=== PATIENT | male | born 1975 | race Caucasian/White ===

== ENCOUNTER 2016-05-07 17:32 | Emergency (ER) | payer MEDICAID ==
[~2016-05-07] VITALS: Ht 172.7 cm; Wt 90.7 kg
[~2016-05-07 17:32] MED LIST: FLUC150T PO; HYDR-3580 PO; NYST100010 PO; PRED50TA PO
[2016-05-07 17:39] VITALS: BP 151/105; PULSE 86; RESP 16; TEMP 97.9; O2SAT 95
[2016-05-07] MEDS ORDERED: PRED-503 PO (18:34)
[2016-05-07] MEDS ORDERED: CYCL1TAB29 PO (18:34)
--- NOTE | 2016-05-07 18:35 | PD ---
HPI Chief Complaint: Musculoskeletal Complaint Time Seen by Provider: 18:33 Travel History International Travel<30 days: No Contact w/Intl Traveler<30days: No Traveled to known affect area: No History of Present Illness HPI 40-year-old male presents emergency Department with complaint of left-sided buttock pain that radiates down the left leg 2 days. Denies injury or strain. Has history of sciatica. Denies fever, chills, nausea, vomiting. Denies risk for loss of sensation, decreased range of motion, decreased strength to affected extremity. Is ambulatory with a normal gait. Denies IV drug use. Denies cancer. Denies encopresis, incontinence, saddle anesthesias. Pain is aggravated with movement of the left leg. Pain is decreased with bending the left leg up. Has not taken any medications or tried any treatments to alleviate his symptoms. Allergic to NSAIDs, Reglan, Zithromax, iodine, contrast media. No other modifying factors or associated signs and symptoms. PFSH Past Medical History Diminished Hearing: No Kidney Stones: Yes Musculoskeletal: Yes (L4-5 back pain) Integumentary: Yes ("HAND AND FEET VIRAL SYNDROME" 02/12) Immunizations Current: Yes ?: Not Social History Alcohol Use: No Tobacco Use: No Substance Use: No Allergies-Medications (Allergen,Severity, Reaction): Coded Allergies: Iodinated Contrast Media (Verified Allergy, Severe, TRACHEA CLOSED, 05/07/16 ) Iodine (Verified Allergy, Severe, CLOSED THROAT , 05/07/16) Reglan (Verified Allergy, Severe, PANIC ATTACK , 05/07/16) Zithromax (Verified Allergy, Unknown, GI UPSET, 05/07/16) Nonsteroidal Anti-Inflammatory Agts (Verified Adverse Reaction, Mild, DIZZINESS, 05/07/16) Reported Meds & Prescriptions Reported Meds & Active Scripts Active Flexeril (Cyclobenzaprine HCl) 10 Mg Tab 10 Mg PO TID PRN Deltasone (Prednisone) 20 Mg Tab 40 Mg PO DAILY 4 Days start 05/08/2016 Review of Systems Except as stated in HPI: all other systems reviewed are Neg Physical Exam Narrative GENERAL: Well-nourished, well-developed male patient, in no acute distress; afebrile, nontoxic-appearing SKIN: Warm and dry. HEAD: Atraumatic. Normocephalic. EYES: Pupils equal and round. No scleral icterus. No injection or drainage. ENT: Mucosa pink and moist. Airway patent. NECK: Trachea midline. CARDIOVASCULAR: Regular rate. RESPIRATORY: No accessory muscle use. GASTROINTESTINAL: Flat. MUSCULOSKELETAL: Bilateral lower extremities supple and non-tense with 2+ pedal pulses and sensory intact; with full range of motion and 5/5 strength. Active dorsiflexion and extension of bilateral feet. Left straight leg raise positive for low back pain. Right straight leg raise is negative for low back pain. Ambulatory with normal gait. Sitting up in bed at 90. No obvious deformities. No clubbing. No cyanosis. No edema. BACK: No midline point tenderness on palpation of the lumbar, thoracic, or cervical spine. Tenderness on palpation of left iliosacral area. No obvious deformities. NEUROLOGICAL: Awake and alert. Oriented 3. No obvious cranial nerve deficits. Motor grossly within normal limits. Normal speech. Moves all extremities. 5/5 strength to all extremities. Sensory intact. PSYCHIATRIC: Appropriate mood and affect; insight and judgment normal. Data Data Last Documented VS Vital Signs Date Time Temp Pulse Resp B/P Pulse Ox O2 Delivery O2 Flow Rate FiO2 05/07/16 17:39 97.9 86 16 151/105 95 Orders Acetaminophen (Tylenol) (05/07/16 18:45) Orphenadrine Inj (Norflex Inj) (05/07/16 18:45) Prednisone (Deltasone) (05/07/16 18:45) MDM Medical Decision Making Medical Screen Exam Complete: Yes Emergency Medical Condition: Yes Medical Record Reviewed: Yes Differential Diagnosis Sciatica, lumbar radiculopathy, acute low back pain Narrative Course Review 1-year-old male physical exam consistent with left-sided sciatica. Patient is allergic to NSAIDs. Tylenol, Deltasone and Norflex administered in the ER. Deltasone and Flexeril prescribed for home. Patient is medically cleared and stable for discharge. Discussed reasons to return to the emergency department. Instructed patient to follow up with primary care provider. Patient agrees with treatment plan. The patients vital signs are stable and the patient is stable for outpatient follow-up and treatment. Patient discharged home, stable and in no acute distress. Diagnosis Primary Impression: Left sided sciatica Referrals: Primary Care Physician Patient Instructions: General Instructions, Sciatica (ED) Additional Instructions: Tylenol or ibuprofen as directed and as needed for pain Flexeril as prescribed and as needed for muscle spasms Heating pad and/or ice to affected area to reduce pain Avoid aggravating activities; increase activity as tolerated Follow-up with primary care provider Return to emergency department immediately with worsening of symptoms Med/Other Pt SpecificInfo: Prescription(s) given Scripts Cyclobenzaprine (Flexeril)10 Mg Tab10 Mg PO TID PRN (MUSCLE SPASM) #21 TAB Ref 0 Prov:Michell Castañeda 05/07/16 Prednisone (Deltasone)20 Mg Tab40 Mg PO DAILY 4 Days Ref 0 start 05/08/2016 Prov:Michell Castañeda 05/07/16 Disposition: 01 DISCHARGE HOME Condition: Stable Michell Castañeda May 07, 2016 18:35
[2016-05-07] MEDS ORDERED: ACETAMINOPHEN 325 MG TAB PO ONE (18:45)
[2016-05-07] MEDS ORDERED: predniSONE 20 MG TAB PO ONE (18:45)
[2016-05-07] MEDS ORDERED: ORPHENADRINE INJ 60 MG/2 ML AMP IM ONE (18:45)
== END 2016-05-07 19:10 | disposition home or self-care (01) ==
LOC: PHEFT 17:32
DX: M54.32 Sciatica, left side (principal); Z87.442 Personal history of urinary calculi; Z87.39 Personal history of other diseases of the musculoskeletal system and connective tissue; Z87.2 Personal history of diseases of the skin and subcutaneous tissue
CPT/HCPCS: 96372; 99283; J2360; J7512

== ENCOUNTER 2016-05-09 10:26 | Emergency (ER) | payer MEDICAID ==
[~2016-05-09] VITALS: Ht 172.7 cm; Wt 90.2 kg
[~2016-05-09 10:26] MED LIST changes: +CYCL1TAB29 PO; -FLUC150T PO; -HYDR-3580 PO; -NYST100010 PO; +PRED-503 PO; -PRED50TA PO
[2016-05-09 10:42] VITALS: BP 144/104; PULSE 89; RESP 16; TEMP 98.6; O2SAT 95
--- NOTE | 2016-05-09 11:41 | PD ---
HPI Chief Complaint: Back/ Neck Pain or Injury Time Seen by Provider: 11:25 Travel History International Travel<30 days: No Contact w/Intl Traveler<30days: No Traveled to known affect area: No History of Present Illness HPI 40 year-old male presents to the emergency room for evaluation of left-sided sciatica and has been ongoing for the past 4 days. Pain starts in the left buttocks and radiates down the entire left leg. Reports paresthesias in the left foot. Denies saddle anesthesia or loss of bowel or bladder control. Denies trauma or injury to the area. Patient has history of slipped disc in his lumbar spine. Pain is worsened with range of motion of the back and left leg and ambulation. Improves with lying flat on the bed and bending the left knee. He has not taken anything or done anything for his symptoms. Patient came to the emergency room 2 days ago for the same complaint at which time he was given Tylenol, Norflex, and prednisone and discharged with prescriptions for prednisone and Flexeril. Patient has not had his prescriptions filled and has not followed up with the primary care physician or attempted to make an appointment. He denies fever, chills, weight loss, history of cancer, back pain , or IV drug use. History Past Medical Histgory Medical History: Denies Significant Hx Past Surgical History Surgical History: No Previous Surgery Social History Alcohol Use: No Tobacco Use: No Allergies-Medications (Allergen,Severity, Reaction): Coded Allergies: Iodinated Contrast Media (Verified Allergy, Severe, TRACHEA CLOSED, 05/09/16 ) Iodine (Verified Allergy, Severe, CLOSED THROAT , 05/09/16) Reglan (Verified Allergy, Severe, PANIC ATTACK , 05/09/16) Zithromax (Verified Allergy, Unknown, GI UPSET, 05/09/16) Nonsteroidal Anti-Inflammatory Agts (Verified Adverse Reaction, Mild, DIZZINESS, 05/09/16) Reported Meds & Prescriptions Reported Meds & Active Scripts Active Flexeril (Cyclobenzaprine HCl) 10 Mg Tab 10 Mg PO TID PRN Deltasone (Prednisone) 20 Mg Tab 40 Mg PO DAILY 4 Days start 05/08/2016 Review of Systems Except as stated in HPI: all other systems reviewed are Neg Physical Exam Narrative GENERAL: Well-nourished, well-developed male in no acute distress. Afebrile. Ambulatory. SKIN: Warm and dry. HEAD: Normocephalic. EYES: No scleral icterus. No injection or drainage. NECK: Supple, trachea midline. No JVD or lymphadenopathy. CARDIOVASCULAR: Regular rate and rhythm without murmurs, gallops, or rubs. MUSCULOSKELETAL: No cyanosis, or edema. 2+ dorsalis pedis pulse. Patellar reflexes 1+ and equal bilaterally. Tenderness to palpation of the left buttocks. BACK: Nontender without obvious deformity. No CVA tenderness. Data Data Last Documented VS Vital Signs Date Time Temp Pulse Resp B/P Pulse Ox O2 Delivery O2 Flow Rate FiO2 05/09/16 10:42 98.6 89 16 144/104 95 MDM Medical Screen Exam Complete: Yes Emergency Medical Condition: No Differential Diagnosis Sciatica Narrative Course 40-year-old male with history of bulging disks and sciatica presents to the emergency room for the second time in 2 days for the same complaint. Patient reports left buttock pain radiating down his left leg. Presents because pain is worsening. Patient was treated in the emergency room previously for pain and discharged with prescriptions for Flexeril and prednisone which he has not filled. There is associated paresthesia in the left foot but no weakness. Left hip range of motion intact. Reflexes 1+ but equal and intact. No red flag symptoms. He is ambulatory. He was instructed to follow-up with his primary care physician for outpatient pain management or outpatient MRI. There are no urgent or emergent medical conditions at this time. A medical screening exam was performed: At the time of evaluation the presenting medical condition was determined not to be of an emergent nature. The patient was given the option of receiving additional care, but declined. Patient was given options for additional community resources from which to obtain care. The Patient Has Been advised to seek medical attention for their presenting complaint. The patient has been advised to return to the ER at any time if an emergent condition develops. Primary Impression: Encounter for medical screening examination Disposition: 01 DISCHARGE HOME Condition: Stable Sharon Haji May 09, 2016 11:41
== END 2016-05-09 11:45 | disposition left against medical advice (07) ==
LOC: PHEFT 10:26
DX: M54.32 Sciatica, left side (principal)
CPT/HCPCS: 99281

== ENCOUNTER 2016-11-04 12:18 | Emergency (ER) | payer MEDICAID ==
[~2016-11-04] VITALS: Ht 172.7 cm; Wt 88.5 kg
[2016-11-04 12:20] VITALS: BP 151/74; PULSE 78; RESP 15; TEMP 98.5; O2SAT 98
[2016-11-04 12:48] VITALS: BP 154/98; PULSE 90; RESP 18; O2SAT 97
[2016-11-04 13:29] LABS: AUTOMATED NEUTROPHIL # 6.7 TH/MM3 (1.8-7.7); BASOPHIL # 0.1 TH/MM3 (0-0.2); BASOPHIL % 0.5 % (0.0-2.0); EOSINOPHIL # 0.1 TH/MM3 (0-0.4); EOSINOPHIL % 1.4 % (0.0-4.0); HEMATOCRIT 47.5 % (39.0-51.0); HEMO FLAGS DIFF FINAL; LYMPH % 22.9 % (9.0-44.0); LYMPHOCYTE # 2.3 TH/MM3 (1.0-4.8); MEAN CELL VOLUME 83.9 FL (80.0-100.0); MEAN CORPUSCULAR HEMOGLOBIN 28.7 PG (27.0-34.0); MEAN CORPUSCULAR HGB CONC 34.2 % (32.0-36.0); MONO % 8.9 % (0.0-8.0); NEUT % 66.3 % (16.0-70.0); PLATELET COUNT 183 TH/MM3 (150-450); RED BLOOD COUNT 5.66 MIL/MM3 (4.50-5.90); RED CELL DISTRIBUTION WIDTH 13.8 % (11.6-17.2); WHITE BLOOD COUNT 10.1 TH/MM3 (4.0-11.0)
--- NOTE | 2016-11-04 13:29 | RADRPT ---
EXAM DATE/TIME: 11/04/2016 13:01 [facility] COMPARISON: No previous studies available for comparison. INDICATIONS : Complains of numbness in left side of face and headache. MEDICAL HISTORY : None. SURGICAL HISTORY : None. ENCOUNTER: Initial ACUITY: 1 day PAIN SCORE: 0/10 LOCATION: Left chest FINDINGS: A single view of the chest demonstrates the lungs to be symmetrically aerated without evidence of mas s, infiltrate or effusion. The cardiomediastinal contours are unremarkable. Osseous structures are intact. CONCLUSION: Normal examination for a patient of this age. Walter Horta MD on November 04, 2016 at 13:26 Board Certified Radiologist. This report was verified electronically.
[2016-11-04 13:32] LABS: APTT (PATIENT) 26.8 SEC (24.3-30.1); PROTHROMBIN TIME - PATIENT 11.5 SEC (9.8-11.6)
[2016-11-04 13:37] LABS: ANION GAP 5 MEQ/L (5-15); BICARBONATE 29.1 MEQ/L (21.0-32.0); CHLORIDE 104 MEQ/L (98-107); GLOMERULAR FILTRATION RATE 69 ML/MIN (>89); MAGNESIUM 2.2 MG/DL (1.5-2.5); SODIUM (NA) 138 MEQ/L (136-145)
--- NOTE | 2016-11-04 13:42 | RADRPT ---
EXAM DATE/TIME: 11/04/2016 13:25 [facility] COMPARISON: CT BRAIN W/O CONTRAST, August 27, 2011, 11:04. INDICATIONS : Left sided headache and facial numbness. RADIATION DOSE: 36.08 CTDIvol (mGy) MEDICAL HISTORY : None SURGICAL HISTORY : None. ENCOUNTER: Initial ACUITY: 1 day PAIN SCALE: 4/10 LOCATION: Left temporal TECHNIQUE: Multiple contiguous axial images were obtained of the head. Using automated exposure control and adj ustment of the mA and/or kV according to patient size, radiation dose was kept as low as reasonably a chievable to obtain optimal diagnostic quality images. DICOM format image data is available electro nically for review and comparison. FINDINGS: CEREBRUM: The ventricles are normal for age. No evidence of midline shift, mass lesion, hemorrhage or acute in farction. No extra-axial fluid collections are seen. POSTERIOR FOSSA: The cerebellum and brainstem are intact. The 4th ventricle is midline. The cerebellopontine angle i s unremarkable. EXTRACRANIAL: The visualized portion of the orbits is intact. SKULL: The calvaria is intact. No evidence of skull fracture. CONCLUSION: No acute disease. Adam Garcia MD FACR on November 04, 2016 at 13:39 Board Certified Radiologist. This report was verified electronically.
[2016-11-04 13:47] LABS: BLOOD UREA NITROGEN 11 MG/DL (7-18)
--- NOTE | 2016-11-04 14:03 | PD ---
HPI Chief Complaint: Numbness/Tingling Time Seen by Provider: 14:00 Travel History International Travel<30 days: No Contact w/Intl Traveler<30days: No Traveled to known affect area: No History of Present Illness HPI 41-year-old male that presents to the ED for evaluation of headache, numbness, weakness for one day. Per patient yesterday she developed red spots on his left eye. Per patient he had a headache on the back of his head that was mild. Per patient today he woke up with a headache and he noticed a spot in his left eye is little bit bigger. Per patient is not really painful. He has no blurry vision or double vision. Per patient around 8:30 he developed sensation of numbness to his left face. Per patient he also developed weakness to his upper and lower extremities. He is able to ambulate with no issues. Per patient she feels "weak". He denies any fevers chills or sweats. No trauma. No injury. He denies any chest pain or shortness of breath. No bowel movement or urinary issues. No history of CVA. Takes no medications. No pain of any kind at this time other than a 2 out of 10 headache on the back of the head. States that he has been taking anything for this. Hasn't seen anybody for this. Has no PCP. Denies any history of hypertension, diabetes or high cholesterol. PFSH Past Medical History Medical History: Denies Significant Hx Diminished Hearing: No Kidney Stones: Yes Musculoskeletal: Yes (L4-5 back pain) Integumentary: Yes ("HAND AND FEET VIRAL SYNDROME" 02/12) Immunizations Current: Yes Tetanus Vaccination: < 5 Years Past Surgical History Surgical History: No Previous Surgery Social History Alcohol Use: No Tobacco Use: No Substance Use: No Allergies-Medications (Allergen,Severity, Reaction): Coded Allergies: Iodinated Contrast Media (Verified Allergy, Severe, TRACHEA CLOSED, 11/04/16 ) Iodine (Verified Allergy, Severe, CLOSED THROAT , 11/04/16) Reglan (Verified Allergy, Severe, PANIC ATTACK , 11/04/16) Zithromax (Verified Allergy, Unknown, GI UPSET, 11/04/16) Nonsteroidal Anti-Inflammatory Agts (Verified Adverse Reaction, Mild, DIZZINESS, 11/04/16) Reported Meds & Prescriptions Reported Meds & Active Scripts Active Flexeril (Cyclobenzaprine HCl) 10 Mg Tab 10 Mg PO TID PRN Deltasone (Prednisone) 20 Mg Tab 40 Mg PO DAILY 4 Days start 05/08/2016 Review of Systems Except as stated in HPI: all other systems reviewed are Neg Physical Exam Narrative GENERAL: SKIN: Warm and dry. No rashes or deformities noted. HEAD: Atraumatic. Normocephalic. EYES: Pupils equal and round 4 mm reactive to light and accommodation. No scleral icterus. No injection or drainage. Patient does appear to have what appears to be of left-sided conjunctival hemorrhage which is less than 1 cm in diameter not painful. EOM intact bilaterally. ENT: No nasal bleeding or discharge. Mucous membranes pink and moist. Tongue is midline. No uvula deviation. NECK: Trachea midline. No JVD. CARDIOVASCULAR: Regular rate and rhythm. No murmurs, S3, S4. RESPIRATORY: No accessory muscle use. Clear to auscultation. Breath sounds equal bilaterally. GASTROINTESTINAL: Abdomen soft, non-tender, nondistended. Hepatic and splenic margins not palpable. MUSCULOSKELETAL: Extremities without clubbing, cyanosis, or edema. No obvious deformities. Full range of motion of the upper and lower extremities bilaterally. 2+ pulses bilaterally. No lumbar, thoracic, cervical spine tenderness to palpation. 5 out of 5 strength bilaterally. Subjective numbness on the left cheek. NEUROLOGICAL: Awake and alert. No obvious cranial nerve deficits. Motor grossly within normal limits. Five out of 5 muscle strength in the arms and legs. Normal speech. PSYCHIATRIC: Appropriate mood and affect; insight and judgment normal. Data Data Last Documented VS Vital Signs Date Time Temp Pulse Resp B/P Pulse Ox O2 Delivery O2 Flow Rate FiO2 11/04/16 12:48 90 18 97 Room Air 11/04/16 12:48 154/98 11/04/16 12:20 98.5 Orders Electrocardiogram (11/04/16 12:56) Complete Blood Count With Diff (11/04/16 12:56) Basic Metabolic Panel (Bmp) (11/04/16 12:56) Troponin I (11/04/16 12:56) Prothrombin Time / Inr (Pt) (11/04/16 12:56) Act Partial Throm Time (Ptt) (11/04/16 12:56) Urinalysis - C+S If Indicated (11/04/16 12:56) Magnesium (Mg) (7/3/17 12:56) Thyroid Stimulating Hormone (11/04/16 12:56) Chest, Single Ap (11/04/16 12:56) Iv Access Insert/Monitor (11/04/16 12:56) Ecg Monitoring (11/04/16 12:56) Oximetry (11/04/16 12:56) Mri Brain W&W/O Contrast (11/04/16 ) Mra Brain W/O Contrast (Cow) (11/04/16 ) Ct Brain W/O Iv Contrast(Rout) (11/04/16 13:10) Lorazepam Inj (Ativan Inj) (11/04/16 14:15) Gadodiamide Pf Inj (Omniscan Pf Inj) (11/04/16 14:39) Labs Laboratory Tests Test 11/04/16 11/04/16 13:05 15:10 White Blood Count 10.1 TH/MM3 Red Blood Count 5.66 MIL/MM3 Hemoglobin 16.2 GM/DL Hematocrit 47.5 % Mean Corpuscular Volume 83.9 FL Mean Corpuscular Hemoglobin 28.7 PG Mean Corpuscular Hemoglobin 34.2 % Concent Red Cell Distribution Width 13.8 % Platelet Count 183 TH/MM3 Mean Platelet Volume 10.1 FL Neutrophils (%) (Auto) 66.3 % Lymphocytes (%) (Auto) 22.9 % Monocytes (%) (Auto) 8.9 % Eosinophils (%) (Auto) 1.4 % Basophils (%) (Auto) 0.5 % Neutrophils # (Auto) 6.7 TH/MM3 Lymphocytes # (Auto) 2.3 TH/MM3 Monocytes # (Auto) 0.9 TH/MM3 Eosinophils # (Auto) 0.1 TH/MM3 Basophils # (Auto) 0.1 TH/MM3 CBC Comment DIFF FINAL Differential Comment Prothrombin Time 11.5 SEC Prothromb Time International 1.0 RATIO Ratio Activated Partial 26.8 SEC Thromboplast Time Sodium Level 138 MEQ/L Potassium Level 4.0 MEQ/L Chloride Level 104 MEQ/L Carbon Dioxide Level 29.1 MEQ/L Anion Gap 5 MEQ/L Blood Urea Nitrogen 11 MG/DL Creatinine 1.16 MG/DL Estimat Glomerular Filtration 69 ML/MIN Rate Random Glucose 90 MG/DL Calcium Level 9.4 MG/DL Magnesium Level 2.2 MG/DL Troponin I LESS THAN 0.02 NG/ML Thyroid Stimulating Hormone 1.930 uIU/ML 3rd Gen Urine Color YELLOW Urine Turbidity CLEAR Urine pH 6.5 Urine Specific [place] 1.017 Urine Protein NEG mg/dL Urine Glucose (UA) NEG mg/dL Urine Ketones NEG mg/dL Urine Occult Blood NEG Urine Nitrite NEG Urine Bilirubin NEG Urine Urobilinogen LESS THAN 2.0 MG/DL Urine Leukocyte Esterase NEG Urine RBC 1 /hpf Urine WBC 2 /hpf Urine Bacteria RARE /hpf Urine Mucus FEW /lpf Microscopic Urinalysis Comment CULT NOT INDICATED MDM Medical Decision Making Medical Screen Exam Complete: Yes Emergency Medical Condition: Yes Medical Record Reviewed: Yes Interpretation(s) Last Impressions Head CT 11/04/16 1310 Signed Impressions: Service Date/Time: Friday, November 04, 2016 13:25 - CONCLUSION: No acute disease. Adam Garcia MD FACR Chest X-Ray 11/04/16 1256 Signed Impressions: Service Date/Time: Friday, November 04, 2016 13:01 - CONCLUSION: Normal examination for a patient of this age. Walter Horta MD Head Magnetic Resonance Angiography 11/04/16 0000 Signed Impressions: Service Date/Time: Friday, November 04, 2016 14:11 - CONCLUSION: Normal examination for a patient of this age. Walter Horta MD Brain MRI 11/04/16 0000 Signed Impressions: Service Date/Time: Friday, November 04, 2016 14:11 - CONCLUSION: No evidence of acute intracranial pathology. No masses are identified.3 Sahil Carvalho MD CBC & BMP Diagram 11/04/16 13:05 troponin and CKMB negative EKG shows sinus rhythm with no sign of ischemia or arrythmia read by me and attending. UA negative coags WNL Differential Diagnosis CVA versus neuropathy versus facial numbness versus shingles versus TIA Narrative Course 41-year-old male that presents to the ED for evaluation of left facial numbness as well as headache and generalized weakness. Patient was properly examined and was found to have signs and symptoms of unclear etiology. Patient has an NIH score of 0. He was evaluated by my attending for agrees with plan. CT and CVA workup will be done. Symptoms are really nonspecific. Question partial paralysis versus early Shaffer's palsy versus shingles versus stroke versus TIA. Patient agrees for us to proceed. Labs and imaging showed no sign of acute injury or deformity. My attending Dr. Gallagher was made aware of all findings and she herself evaluated the patient and agrees with plan. Patient will be discharged with instructions to follow up with her primary care doctor. I did instruct the patient that if anything worsens especially if he develops more of a paralysis as well as a rash patient is to come back immediately. Patient agrees and understands this plan. See ED if worsening symptoms. Follow with PCP. Diagnosis Primary Impression: Facial paresthesia Additional Impression: Conjunctival hemorrhage of left eye Patient Instructions: General Instructions Additional Instructions: Take medication as prescribed. Follow-up with your doctor this week. See ED for any worsening symptoms. Especially if you develop a rash or paralysis of your face. Med/Other Pt SpecificInfo: Prescription(s) given Disposition: 01 DISCHARGE HOME Condition: Moi Slater Nov 04, 2016 14:03
[2016-11-04] MEDS ORDERED: LORazepam 2 MG/ML VIAL IV PUSH ONE (14:15)
[2016-11-04] MEDS ORDERED: GADODIAMIDE PF 287 MG/ML 20 ML VIAL (for RAD MRI) IV ONE (14:39)
--- NOTE | 2016-11-04 14:42 | RADRPT ---
EXAM DATE/TIME: 11/04/2016 14:11 [facility] COMPARISON: No previous studies available for comparison. INDICATIONS : Cephalgia. Left sided facial numbness and body weakness. MEDICAL HISTORY : None. SURGICAL HISTORY : None. ENCOUNTER: Initial ACUITY: 1 day PAIN SCORE: 3/10 LOCATION: Bilateral cranial Please note a normal MRA of the brain does not entirely exclude the possibility of a small aneurysm, nor the possibility of distal intracranial vessel disease. TECHNIQUE: 3D time of flight MRA was performed. Source images, multiplanar STS MIP, and 3D volume MIP reconstru ctions were reviewed. FINDINGS: There is excellent visualization of the major intracranial arteries out to the second-order branch ve ssels. There is no evidence for aneurysm, vessel truncation or stenosis, and no evidence for vascula r malformation. CONCLUSION: Normal examination for a patient of this age. Walter Horta MD on November 04, 2016 at 14:37 Board Certified Radiologist. This report was verified electronically.
[2016-11-04 15:39] LABS: BACTERIA, URINE RARE /hpf; BLOOD, URINE NEG (NEG); COMMENT (UR) CULT NOT INDICATED; CULTURE IF INDICATED CULT NOT INDICATED; GLUCOSE,URINE NEG (NEG); KETONE, URINE NEG (NEG); MUCUS URINE FEW /lpf (OCC); NITRITE,URINE NEG (NEG); PH, URINE 6.5 (5.0-8.5); URINE COLOR YELLOW (YELLW/STRAW)
--- NOTE | 2016-11-04 15:45 | RADRPT ---
EXAM DATE/TIME: 11/04/2016 14:11 [facility] COMPARISON: No previous studies available for comparison. INDICATIONS : Cephalgia. Left sided facial numbness, body weakness, CONTRAST: 17 cc Omniscan (gadodiamide) IV MEDICAL HISTORY : None. SURGICAL HISTORY : None. ENCOUNTER: Initial ACUITY: 1 day PAIN SCORE: 2/10 LOCATION: Bilateral cranial TECHNIQUE: Multiplanar, multisequence MRI of the brain was performed both prior to and following the administrat ion of paramagnetic contrast. FINDINGS: MRI of the brain is performed in sagittal, axial and coronal planes. The craniocervical junction and midline structures are unremarkable. Diffusion weighted images demonstrate no abnormality. There is n o evidence of acute cortical infarction, acute hemorrhage, mass effect or midline shift is seen. Foll owing the administration of contrast no abnormal enhancement is identified. Posterior fossa structur es are unremarkable. CONCLUSION: No evidence of acute intracranial pathology. No masses are identified.3 Sahil Carvalho MD on November 04, 2016 at 15:41 Board Certified Radiologist. This report was verified electronically.
--- NOTE | 2016-11-04 15:49 | PD ---
Physical Exam Date Seen by Provider: Nov 04, 2016 Time Seen by Provider: 15:46 Narrative 41-year-old male came to the emergency room with history of left sided occipital headache that started yesterday and this morning left-sided facial paresthesias since 8:30 this morning. Vital signs are stable in triage. Patient is being seen and followed up by the PA and I'm supervising him. Patient seems anxious. He is otherwise a relatively healthy individual. I did a thorough neurologic exam on this patient in my NIH stroke score was 0. Plan was to get a CT of the head without contrast and if that was negative to go ahead and get an MRI. Patient was not a TPA candidate given his NIH stroke score of 0 and timing. It's CAT scan and MRI report are back and they're within normal limit. Given this I think it would be okay to do have the patient discharged home and then follow-up with his primary care as an outpatient. Data Data Last Documented VS Orders Electrocardiogram (11/04/16 12:56) Complete Blood Count With Diff (11/04/16 12:56) Basic Metabolic Panel (Bmp) (11/04/16 12:56) Troponin I (11/04/16 12:56) Prothrombin Time / Inr (Pt) (11/04/16 12:56) Act Partial Throm Time (Ptt) (11/04/16 12:56) Urinalysis - C+S If Indicated (11/04/16 12:56) Magnesium (Mg) (11/04/16 12:56) Thyroid Stimulating Hormone (11/04/16 12:56) Chest, Single Ap (11/04/16 12:56) Iv Access Insert/Monitor (11/04/16 12:56) Ecg Monitoring (11/04/16 12:56) Oximetry (11/04/16 12:56) Mri Brain W&W/O Contrast (11/04/16 ) Mra Brain W/O Contrast (Cow) (11/04/16 ) Ct Brain W/O Iv Contrast(Rout) (11/04/16 13:10) Lorazepam Inj (Ativan Inj) (11/04/16 14:15) Gadodiamide Pf Inj (Omniscan Pf Inj) (11/04/16 14:39) Labs MDM Supervised Visit with MAGALI: Ramandeep Ybarra MD Nov 04, 2016 15:49 Ct Brain W/O Iv Contrast(Rout) (11/04/16 13:10) Lorazepam Inj (Ativan Inj) (11/04/16 14:15) Gadodiamide Pf Inj (Omniscan Pf Inj) (11/04/16 14:39) Labs Laboratory Tests Test 11/04/16 11/04/16 13:05 15:10 White Blood Count 10.1 TH/MM3 Red Blood Count 5.66 MIL/MM3 Hemoglobin 16.2 GM/DL Hematocrit 47.5 % Mean Corpuscular Volume 83.9 FL Mean Corpuscular Hemoglobin 28.7 PG Mean Corpuscular Hemoglobin 34.2 % Concent Red Cell Distribution Width 13.8 % Platelet Count 183 TH/MM3 Mean Platelet Volume 10.1 FL Neutrophils (%) (Auto) 66.3 % Lymphocytes (%) (Auto) 22.9 % Monocytes (%) (Auto) 8.9 % Eosinophils (%) (Auto) 1.4 % Basophils (%) (Auto) 0.5 % Neutrophils # (Auto) 6.7 TH/MM3 Lymphocytes # (Auto) 2.3 TH/MM3 Monocytes # (Auto) 0.9 TH/MM3 Eosinophils # (Auto) 0.1 TH/MM3 Basophils # (Auto) 0.1 TH/MM3 CBC Comment DIFF FINAL Differential Comment Prothrombin Time 11.5 SEC Prothromb Time International 1.0 RATIO Ratio Activated Partial 26.8 SEC Thromboplast Time Sodium Level 138 MEQ/L Potassium Level 4.0 MEQ/L Chloride Level 104 MEQ/L Carbon Dioxide Level 29.1 MEQ/L Anion Gap 5 MEQ/L Blood Urea Nitrogen 11 MG/DL Creatinine 1.16 MG/DL Estimat Glomerular Filtration 69 ML/MIN Rate Random Glucose 90 MG/DL Calcium Level 9.4 MG/DL Magnesium Level 2.2 MG/DL Troponin I LESS THAN 0.02 NG/ML Thyroid Stimulating Hormone 1.930 uIU/ML 3rd Gen Urine Color YELLOW Urine Turbidity CLEAR Urine pH 6.5 Urine Specific [place] 1.017 Urine Protein NEG mg/dL Urine Glucose (UA) NEG mg/dL Urine Ketones NEG mg/dL Urine Occult Blood NEG Urine Nitrite NEG Urine Bilirubin NEG Urine Urobilinogen LESS THAN 2.0 MG/DL Urine Leukocyte Esterase NEG Urine RBC 1 /hpf Urine WBC 2 /hpf Urine Bacteria RARE /hpf Urine Mucus FEW /lpf Microscopic Urinalysis Comment CULT NOT INDICATED MDM Supervised Visit with MAGALI: Yes Ramandeep Gallagehr MD Nov 04, 2016 15:49
[2016-11-04 16:49] VITALS: BP 126/79
--- NOTE | 2016-11-05 13:30 | EKG ---
Date Performed: 11/04/2016 Time Performed: 13:19:26 PTAGE: 41 years EKG: Sinus rhythm BORDERLINE LEFT AXIS DEVIATION BORDERLINE ECG PREVIOUS TRACING : 08/27/2011 10.46 Compared to prior tracing no significant change DOCTOR: Rico Young Interpretating Date/Time 11/05/2016 13:22:38
== END 2016-11-04 16:50 | disposition home or self-care (01) ==
LOC: NEPC 12:18
DX: R20.9 Unspecified disturbances of skin sensation (principal); H11.32 Conjunctival hemorrhage, left eye; R94.31 Abnormal electrocardiogram [ECG] [EKG]
CPT/HCPCS: 70450; 70544; 70553; 71010; 80048; 81001; 83735; 84443; 84484; 85025; 85610; 85730; 93005; 96374; 99285; A9579; J2060

== ENCOUNTER 2017-06-29 12:12 | Emergency (ER) | payer MEDICAID ==
[~2017-06-29] VITALS: Ht 172.7 cm; Wt 90.5 kg
[~2017-06-29 12:12] MED LIST changes: +CYCL10TA PO; -CYCL1TAB29 PO
[2017-06-29 12:14] VITALS: BP 156/99; PULSE 77; TEMP 98.2; O2SAT 99
[2017-06-29] MEDS ORDERED: ORPHENADRINE INJ 60 MG/2 ML AMP IM ONE (13:00)
[2017-06-29] MEDS ORDERED: KETOROLAC TROMETHAMINE 60 MG/2 ML (IM) VIAL IM ONE (13:00)
--- NOTE | 2017-06-29 13:28 | RADRPT ---
EXAM DATE/TIME: 06/29/2017 13:18 [facility] COMPARISON: No previous studies available for comparison. INDICATIONS : Pain with no known injury. MEDICAL HISTORY : None. SURGICAL HISTORY : None. ENCOUNTER: Initial ACUITY: 1 day PAIN SCORE: 10/10 LOCATION: Right Shoulder. FINDINGS: Multiple view examination of the right shoulder demonstrates no evidence of fracture or dislocation. The glenohumeral and acromioclavicular joints are maintained. There is normal range of motion betwe en internal and external rotation. Bony mineralization is normal. CONCLUSION: Normal examination for a patient of this age. Walter Horta MD on June 29, 2017 at 13:26 Board Certified Radiologist. This report was verified electronically.
--- NOTE | 2017-06-29 13:35 | PD ---
HPI Chief Complaint: Musculoskeletal Complaint Time Seen by Provider: 12:36 Travel History International Travel<30 days: No Contact w/Intl Traveler<30days: No Traveled to known affect area: No History of Present Illness HPI 41-year-old male presents to the emergency department with complaint of right shoulder pain that he woke up with yesterday morning. Thinks he has bursitis in his shoulder. Denies injury. Denies paresthesias, loss of sensation to the affected extremity. Reports decreased abduction. Denies fever, vomiting. Rates pain 01/12. Has not taken any medication or try any treatments to alleviate his symptoms. Dr. Gabriel Johnston is primary care provider. Allergies to iodine, NSAIDs, Reglan. Denies significant past medical history. Has no other medical complaints. No other modifying factors or associated signs and symptoms. PFSH Past Medical History Diminished Hearing: No Kidney Stones: Yes Musculoskeletal: Yes (L4-5 back pain) Integumentary: Yes ("HAND AND FEET VIRAL SYNDROME" 02/12) Immunizations Current: Yes Social History Alcohol Use: No Tobacco Use: No Substance Use: No Allergies-Medications (Allergen,Severity, Reaction): Coded Allergies: Iodinated Contrast- Oral and IV Dye (Unverified Allergy, Severe, TRACHEA CLOSED, 06/29/17) iodine (Unverified Allergy, Severe, CLOSED THROAT , 06/29/17) metoclopramide (Unverified Allergy, Severe, PANIC ATTACK , 06/29/17) potassium iodide (Unverified Allergy, Severe, CLOSED THROAT , 06/29/17) povidone-iodine (Unverified Allergy, Severe, CLOSED THROAT , 06/29/17) sodium iodide (Unverified Allergy, Severe, CLOSED THROAT , 06/29/17) sodium iodide (Unverified Allergy, Severe, CLOSED THROAT , 06/29/17) azithromycin (Unverified Allergy, Unknown, GI UPSET, 06/29/17) diclofenac (Unverified Adverse Reaction, Mild, DIZZINESS, 06/29/17) etodolac (Unverified Adverse Reaction, Mild, DIZZINESS, 06/29/17) flurbiprofen (Unverified Adverse Reaction, Mild, DIZZINESS, 06/29/17) ibuprofen (Unverified Adverse Reaction, Mild, DIZZINESS, 06/29/17) indomethacin (Unverified Adverse Reaction, Mild, DIZZINESS, 06/29/17) ketoprofen (Unverified Adverse Reaction, Mild, DIZZINESS, 06/29/17) ketorolac (Unverified Adverse Reaction, Mild, DIZZINESS, 06/29/17) naproxen (Unverified Adverse Reaction, Mild, DIZZINESS, 06/29/17) oxaprozin (Unverified Adverse Reaction, Mild, DIZZINESS, 06/29/17) Reported Meds & Prescriptions Reported Meds & Active Scripts Active Robaxin (Methocarbamol) 500 Mg Tab 500 Mg PO QID PRN Review of Systems Except as stated in HPI: all other systems reviewed are Neg Physical Exam Narrative GENERAL: Well-nourished, well-developed male patient, in no acute distress SKIN: Warm and dry. HEAD: Atraumatic. Normocephalic. EYES: Pupils equal and round. No scleral icterus. No injection or drainage. ENT: Mucosa pink and moist. Airway patent. NECK: Supple. Trachea midline. CARDIOVASCULAR: Regular rate. RESPIRATORY: No accessory muscle use. GASTROINTESTINAL: Flat. MUSCULOSKELETAL: No obvious deformities. No clubbing. No cyanosis. No edema. Right shoulder with limited range of motion; less than 90 abduction; right shoulder with no obvious deformities; without erythema, edema, ecchymosis; tenderness to the lateral aspect; joint stable; shoulders equal. 5/5 strength. Right upper extremity supple and non-tense. 2+ radial pulse and sensory intact. NEUROLOGICAL: Awake and alert. Oriented 3. No obvious cranial nerve deficits. Motor grossly within normal limits. Normal speech. PSYCHIATRIC: Appropriate mood and affect; insight and judgment normal. Data Data Last Documented VS Vital Signs Date Time Temp Pulse Resp B/P (MAP) Pulse Ox O2 Delivery O2 Flow Rate FiO2 06/29/17 12:14 98.2 77 156/99 (118) 99 Orders Orders Shoulder, Complete (>2vws) (06/29/17 12:50) Ketorolac Inj (Toradol Inj) (06/29/17 13:00) Orphenadrine Inj (Norflex Inj) (06/29/17 13:00) Ed Discharge Order (06/29/17 13:39) MDM Medical Decision Making Medical Screen Exam Complete: Yes Emergency Medical Condition: Yes Medical Record Reviewed: Yes Differential Diagnosis Arthritis, bursitis, shoulder sprain, shoulder pain, less likely fracture, dislocation, joint separation Narrative Course 41-year-old male with right shoulder pain. Denies injury. Right shoulder x- ray ordered. Patient reports allergies to NSAIDs, but he says he only caused dizziness and he agrees to an injection of Toradol for his pain. Toradol and Norflex ordered. Right shoulder x-ray with no acute findings. Discussed x-ray findings with patient. Instructed patient to follow-up if symptoms persist greater than 7-10 days. Robaxin prescribed for home. Instructed patient to follow up with primary care provider. Patient verbalizes understanding and agreement with treatment plan. Patient is medically cleared and stable for discharge. Discussed reasons to return to the emergency department. Patient agrees with treatment plan. The patients vital signs are stable and the patient is stable for outpatient follow-up and treatment. Patient discharged home, stable and in no acute distress. Diagnosis Primary Impression: Right shoulder pain Qualified Codes: M25.511 - Pain in right shoulder Referrals: Orthopaedic Surgeon Primary Care Physician Patient Instructions: General Instructions, Shoulder Pain (ED), Shoulder Sprain (ED) Additional Instructions: Tylenol or ibuprofen as needed and as directed to reduce pain and inflammation Rest, ice, and compress extremity to decrease pain and inflammation Arm sling for support Avoid aggravating activity; increase activity as tolerated Follow-up with primary care provider Follow-up with orthopedics as needed Return to the emergency department immediately with worsening symptoms Med/Other Pt SpecificInfo: Prescription(s) given Scripts Methocarbamol (Robaxin) 500 Mg Tab 500 MG PO QID Y for MUSCLE SPASM, #30 TAB 0 Refills Prov: Michell Castañeda 06/29/17 Disposition: DISCHARGE HOME Condition: Stable Michell Castañeda Jun 29, 2017 13:35
[2017-06-29] MEDS ORDERED: ROBA500T PO (13:38)
== END 2017-06-29 14:25 | disposition home or self-care (01) ==
LOC: NEPD 12:12
DX: M25.511 Pain in right shoulder (principal)
CPT/HCPCS: 73030; 96372; 99283; J1885; J2360

== ENCOUNTER 2017-10-05 14:16 | Emergency (ER) | payer MEDICAID ==
[~2017-10-05] VITALS: Ht 172.7 cm; Wt 95.0 kg
[~2017-10-05 14:16] MED LIST changes: -CYCL10TA PO; -PRED-503 PO; +ROBA500T PO
[2017-10-05 14:26] VITALS: BP 148/97; PULSE 90; RESP 16; TEMP 98.9; O2SAT 97
[2017-10-05] MEDS ORDERED: SODIUM CHLOR 0.9% 1000 ML INJ 1,000 ML IV SCH (15:24)
[2017-10-05] MEDS ORDERED: SODIUM CHLORIDE 0.9% FLUSH 10 ML FLUSH IV FLUSH PRN (15:30)
--- NOTE | 2017-10-05 15:33 | PD ---
HPI Chief Complaint: Abdominal Pain Time Seen by Provider: 15:22 Travel History International Travel<30 days: No Contact w/Intl Traveler<30days: No Traveled to known affect area: No History of Present Illness HPI 42-year-old male presents to emergency department with complaint of left upper quadrant abdominal pain and fever 4 days. T-max of 100.0. Pain now radiates around to his back. Started with diarrhea yesterday. Denies hematochezia. Denies nausea, vomiting. Denies dysuria. Has history of kidney stones. Denies alcohol use. Rates pain 11/11. Says is constant. Has not taken any medications or try any treatments to alleviate his symptoms. No known aggravating or relieving factors. Denies history of abdominal surgeries. Primary CARE providers Dr. Rios and kourtney. Allergies as listed on the chart. Denies significant past medical history, other than kidney stones. Has no other medical complaints. No other modifying factors or associated signs and symptoms. PFSH Past Medical History Diminished Hearing: No Kidney Stones: Yes Musculoskeletal: Yes (L4-5 back pain) Integumentary: Yes ("HAND AND FEET VIRAL SYNDROME" 02/12) Immunizations Current: Yes Social History Alcohol Use: No Tobacco Use: No Substance Use: No Allergies-Medications (Allergen,Severity, Reaction): Coded Allergies: Iodinated Contrast- Oral and IV Dye (Unverified Allergy, Severe, TRACHEA CLOSED, 10/05/17) iodine (Unverified Allergy, Severe, CLOSED THROAT , 10/05/17) metoclopramide (Unverified Allergy, Severe, PANIC ATTACK , 10/05/17) potassium iodide (Unverified Allergy, Severe, CLOSED THROAT , 10/05/17) povidone-iodine (Unverified Allergy, Severe, CLOSED THROAT , 10/05/17) sodium iodide (Unverified Allergy, Severe, CLOSED THROAT , 10/05/17) sodium iodide (Unverified Allergy, Severe, CLOSED THROAT , 10/05/17) azithromycin (Unverified Allergy, Unknown, GI UPSET, 10/05/17) diclofenac (Unverified Adverse Reaction, Mild, DIZZINESS, 10/05/17) etodolac (Unverified Adverse Reaction, Mild, DIZZINESS, 10/05/17) flurbiprofen (Unverified Adverse Reaction, Mild, DIZZINESS, 10/05/17) ibuprofen (Unverified Adverse Reaction, Mild, DIZZINESS, 10/05/17) indomethacin (Unverified Adverse Reaction, Mild, DIZZINESS, 10/05/17) ketoprofen (Unverified Adverse Reaction, Mild, DIZZINESS, 10/05/17) ketorolac (Unverified Adverse Reaction, Mild, DIZZINESS, 10/05/17) naproxen (Unverified Adverse Reaction, Mild, DIZZINESS, 10/05/17) oxaprozin (Unverified Adverse Reaction, Mild, DIZZINESS, 10/05/17) Uncoded Allergies: michael (Allergy, Severe, 10/05/17) Reported Meds & Prescriptions Reported Meds & Active Scripts Active Review of Systems Except as stated in HPI: all other systems reviewed are Neg Physical Exam Narrative GENERAL: Well-nourished, well-developed male patient, in no acute distress; afebrile; nontoxic-appearing SKIN: Warm and dry. HEAD: Atraumatic. Normocephalic. EYES: Pupils equal and round. No scleral icterus. No injection or drainage. ENT: Mucosa pink and moist. Airway patent. NECK: Trachea midline. CARDIOVASCULAR: Regular rate and rhythm. No murmur appreciated. RESPIRATORY: No accessory muscle use. Clear to auscultation. Breath sounds equal bilaterally. GASTROINTESTINAL: Abdomen soft, tenderness on palpation to left upper quadrant, nondistended. Hepatic and splenic margins not palpable. Bowel sounds are active 4 quadrants. Nonrigid. No guarding. BACK: No CVA tenderness. MUSCULOSKELETAL: No obvious deformities. No clubbing. No cyanosis. No edema. NEUROLOGICAL: Awake and alert. Oriented 3. No obvious cranial nerve deficits. Motor grossly within normal limits. Normal speech. PSYCHIATRIC: Appropriate mood and affect; insight and judgment normal. Data Data Last Documented VS Vital Signs Date Time Temp Pulse Resp B/P (MAP) Pulse Ox O2 Delivery O2 Flow Rate FiO2 10/05/17 15:48 18 10/05/17 14:26 98.9 90 148/97 (114) 97 Orders Orders Complete Blood Count With Diff (10/05/17 15:24) Comprehensive Metabolic Panel (10/05/17 15:24) Lipase (10/05/17 15:24) Prothrombin Time / Inr (Pt) (10/05/17 15:24) Act Partial Throm Time (Ptt) (10/05/17 15:24) Urinalysis - C+S If Indicated (10/05/17 15:24) Iv Access Insert/Monitor (10/05/17 15:24) Sodium Chlor 0.9% 1000 Ml Inj (Ns 1000 M (10/05/17 15:24) Sodium Chloride 0.9% Flush (Ns Flush) (10/05/17 15:30) Ct Abd/Pel W/O Iv Contrast (10/05/17 15:33) Labs Laboratory Tests Test 10/05/17 15:42 10/05/17 15:52 White Blood Count 8.8 TH/MM3 Red Blood Count 5.39 MIL/MM3 Hemoglobin 15.8 GM/DL Hematocrit 45.7 % Mean Corpuscular Volume 84.9 FL Mean Corpuscular Hemoglobin 29.3 PG Mean Corpuscular Hemoglobin Concent 34.6 % Red Cell Distribution Width 14.0 % Platelet Count 173 TH/MM3 Mean Platelet Volume 9.7 FL Neutrophils (%) (Auto) 63.3 % Lymphocytes (%) (Auto) 24.2 % Monocytes (%) (Auto) 10.9 % Eosinophils (%) (Auto) 0.8 % Basophils (%) (Auto) 0.8 % Neutrophils # (Auto) 5.6 TH/MM3 Lymphocytes # (Auto) 2.1 TH/MM3 Monocytes # (Auto) 1.0 TH/MM3 Eosinophils # (Auto) 0.1 TH/MM3 Basophils # (Auto) 0.1 TH/MM3 CBC Comment DIFF FINAL Differential Comment Prothrombin Time 11.2 SEC Prothromb Time International Ratio 1.1 RATIO Activated Partial Thromboplast Time 26.7 SEC Blood Urea Nitrogen 15 MG/DL Creatinine 1.21 MG/DL Random Glucose 92 MG/DL Total Protein 7.9 GM/DL Albumin 4.1 GM/DL Calcium Level 9.5 MG/DL Alkaline Phosphatase 82 U/L Aspartate Amino Transf (AST/SGOT) 18 U/L Alanine Aminotransferase (ALT/SGPT) 34 U/L Total Bilirubin 0.9 MG/DL Sodium Level 139 MEQ/L Potassium Level 3.8 MEQ/L Chloride Level 104 MEQ/L Carbon Dioxide Level 25.8 MEQ/L Anion Gap 9 MEQ/L Estimat Glomerular Filtration Rate 65 ML/MIN Lipase 187 U/L Urine Color YELLOW Urine Turbidity CLEAR Urine pH 5.5 Urine Specific [place] 1.027 Urine Protein NEG mg/dL Urine Glucose (UA) NEG mg/dL Urine Ketones NEG mg/dL Urine Occult Blood NEG Urine Nitrite NEG Urine Bilirubin NEG Urine Urobilinogen LESS THAN 2.0 MG/DL Urine Leukocyte Esterase NEG Urine RBC 1 /hpf Urine WBC 1 /hpf Urine Mucus FEW /lpf Microscopic Urinalysis Comment CULT NOT INDICATED MDM Medical Decision Making Medical Screen Exam Complete: Yes Emergency Medical Condition: Yes Medical Record Reviewed: Yes Differential Diagnosis Pancreatitis, nephrolithiasis, hydronephrosis, pyelonephritis Narrative Course 42-year-old male with left upper quadrant abdominal pain. Patient is afebrile and nontoxic-appearing. Reports T-max of 100.0 and diarrhea. CBC, CMP, lipase , urinalysis, IV, IV fluid bolus, CT abdomen/pelvis ordered. 1839: CBC, CMP, lipase, coags, urinalysis unremarkable. CT abdomen/pelvis conclude: Abdomen/Pelvis CT 10/05/17 1533 Signed Impressions: CONCLUSION: 1. No acute obstructive uropathy. 2. Uncommon located colonic diverticulosis. 3. Nondistended urinary bladder with diffuse wall thickening. 4. Degenerative changes involving the lumbar spine. Copy of the CT report provided to the patient. Findings discussed. Discussed findings with Dr. Gallagher and disposition and follow-up plan discussed. Instructed patient to follow up with primary care provider. Patient verbalizes understanding and agreement with treatment plan. Patient is medically cleared and stable for discharge. Discussed reasons to return to the emergency department. Patient agrees with treatment plan. The patients vital signs are stable and the patient is stable for outpatient follow-up and treatment. Patient discharged home, stable and in no acute distress. Diagnosis Primary Impression: Abdominal pain, left upper quadrant Referrals: Primary Care Physician Patient Instructions: Abdominal Pain (ED), General Instructions Additional Instructions: Increase fluid intake, starting with clear fluids; advancing to a bland diet as tolerated Garza diet to include crackers, rice, toast, bananas as tolerated, advancing slowly to regular diet Follow-up primary care provider in next 1-2 days Return to emergency department immediately with worsening of symptoms Med/Other Pt SpecificInfo: No Change to Meds, No Meds Exist/No RX given Disposition: 01 DISCHARGE HOME Condition: Stable Michell Castañeda Oct 05, 2017 15:33
[2017-10-05 15:56] LABS: AUTOMATED NEUTROPHIL # 5.6 TH/MM3 (1.8-7.7); BASOPHIL # 0.1 TH/MM3 (0-0.2); BASOPHIL % 0.8 % (0.0-2.0); EOSINOPHIL # 0.1 TH/MM3 (0-0.4); EOSINOPHIL % 0.8 % (0.0-4.0); HEMATOCRIT 45.7 % (39.0-51.0); HEMOGLOBIN 15.8 GM/DL (13.0-17.0); LYMPH % 24.2 % (9.0-44.0); LYMPHOCYTE # 2.1 TH/MM3 (1.0-4.8); MEAN CELL VOLUME 84.9 FL (80.0-100.0); MEAN CORPUSCULAR HEMOGLOBIN 29.3 PG (27.0-34.0); MEAN CORPUSCULAR HGB CONC 34.6 % (32.0-36.0); MEAN PLATELET VOLUME 9.7 FL (7.0-11.0); MONO % 10.9 % (0.0-8.0); NEUT % 63.3 % (16.0-70.0); PLATELET COUNT 173 TH/MM3 (150-450); RED BLOOD COUNT 5.39 MIL/MM3 (4.50-5.90); WHITE BLOOD COUNT 8.8 TH/MM3 (4.0-11.0)
[2017-10-05 16:15] LABS: INTERNATIONAL NORMALIZED RATIO 1.1 RATIO; PROTHROMBIN TIME - PATIENT 11.2 SEC (9.8-11.6)
[2017-10-05 16:16] LABS: ALBUMIN 4.1 GM/DL (3.4-5.0); ALT (GPT) 34 U/L (12-78); AST (GOT) 18 U/L (15-37); BICARBONATE 25.8 MEQ/L (21.0-32.0); BLOOD UREA NITROGEN 15 MG/DL (7-18); CALCIUM 9.5 MG/DL (8.5-10.1); CHLORIDE 104 MEQ/L (98-107); CREATININE 1.21 MG/DL (0.60-1.30); GLOMERULAR FILTRATION RATE 65 ML/MIN (>89); GLUCOSE,RANDOM 92 MG/DL (74-106); SODIUM (NA) 139 MEQ/L (136-145)
[2017-10-05 16:19] LABS: ALKALINE PHOSPHATASE 82 U/L (45-117); TOTAL BILIRUBIN ADULT 0.9 MG/DL (0.2-1.0); TOTAL PROTEIN 7.9 GM/DL (6.4-8.2)
[2017-10-05 16:19] LABS: BILIRUBIN, URINE NEG (NEG); BLOOD, URINE NEG (NEG); GLUCOSE,URINE NEG (NEG); KETONE, URINE NEG (NEG); MUCUS URINE FEW /lpf (OCC); NITRITE,URINE NEG (NEG); PH, URINE 5.5 (5.0-8.5); URINE COLOR YELLOW (YELLW/STRAW); URINE LEUKOCYTE ESTERASE NEG (NEG)
--- NOTE | 2017-10-05 16:27 | RADRPT ---
EXAM DATE: 10/05/2017 4:15 PM EDT AGE/SEX: 42 years / Male INDICATIONS: Left side abdomen and back pain CLINICAL DATA: This is the patient's initial encounter. Patient reports that signs and symptoms have been present for 4 - 6 days and indicates a pain score of 7/10. MEDICAL/SURGICAL HISTORY: Renal calculi. None. RADIATION DOSE: 6.92 CTDI (mGy) COMPARISON: [facility], CT ABDOMEN & PELVIS W/O CONTRAST, 09/02/2013. . TECHNIQUE: Multiple contiguous axial images were obtained through the abdomen. Images were obtained using multiple row detector helical technique. Using dose reduction techniques, radiation dose was ke pt as low as reasonably achievable to obtain optimal diagnostic quality images. FINDINGS: Lower Lungs: The visualized lower lungs are clear. Liver: The liver has a homogeneous density without space-occupying lesion. There is no dilation of th e biliary tree. Spleen: Homogeneous density without enlargement. Pancreas: Unremarkable without mass or calcification. Kidneys: Normal in size and shape. No evidence of mass or hydronephrosis. Adrenal Glands: Unremarkable. Aorta: The aorta and proximal iliac vessels are grossly unremarkable without aneurysmal dilation. Bowel/Mesentery: Uncomplicated colonic diverticulosis is noted. No acute diverticulitis is noted. Th e appendix is normal. Abdominal Wall: Intact. Retroperitoneum: No evidence of adenopathy in the retrocrural, para-aortic, or deep pelvic regions. Bladder: The urinary bladder is nondistended and its wall is diffusely thickened.. Reproductive Organs: The prostate gland contains peripheral calcifications. Inguinal: The inguinal region is unremarkable without evidence of adenopathy. Bony Structures: Degenerative changes are noted involving the lumbar spine. CONCLUSION: 1. No acute obstructive uropathy. 2. Uncommon located colonic diverticulosis. 3. Nondistended urinary bladder with diffuse wall thickening. 4. Degenerative changes involving the lumbar spine. Electronically signed by: Migue Givens MD 10/05/2017 4:26 PM EDT
--- NOTE | 2017-10-05 16:35 | PD ---
Physical Exam Date Seen by Provider: Oct 05, 2017 Narrative This patient presents for evaluation of left low back pain. Pain is exacerbated by movement. Pain has been present for several days now. Data Data Last Documented VS Vital Signs Date Time Temp Pulse Resp B/P (MAP) Pulse Ox O2 Delivery O2 Flow Rate FiO2 10/05/17 15:48 18 10/05/17 14:26 98.9 90 148/97 (114) 97 Orders Orders Complete Blood Count With Diff (10/05/17 15:24) Comprehensive Metabolic Panel (10/05/17 15:24) Lipase (10/05/17 15:24) Prothrombin Time / Inr (Pt) (10/05/17 15:24) Act Partial Throm Time (Ptt) (10/05/17 15:24) Urinalysis - C+S If Indicated (10/05/17 15:24) Iv Access Insert/Monitor (10/05/17 15:24) Sodium Chlor 0.9% 1000 Ml Inj (Ns 1000 M (10/05/17 15:24) Sodium Chloride 0.9% Flush (Ns Flush) (10/05/17 15:30) Ct Abd/Pel W/O Iv Contrast (10/05/17 15:33) Labs Laboratory Tests Test 10/05/17 15:42 10/05/17 15:52 White Blood Count 8.8 TH/MM3 Red Blood Count 5.39 MIL/MM3 Hemoglobin 15.8 GM/DL Hematocrit 45.7 % Mean Corpuscular Volume 84.9 FL Mean Corpuscular Hemoglobin 29.3 PG Mean Corpuscular Hemoglobin Concent 34.6 % Red Cell Distribution Width 14.0 % Platelet Count 173 TH/MM3 Mean Platelet Volume 9.7 FL Neutrophils (%) (Auto) 63.3 % Lymphocytes (%) (Auto) 24.2 % Monocytes (%) (Auto) 10.9 % Eosinophils (%) (Auto) 0.8 % Basophils (%) (Auto) 0.8 % Neutrophils # (Auto) 5.6 TH/MM3 Lymphocytes # (Auto) 2.1 TH/MM3 Monocytes # (Auto) 1.0 TH/MM3 Eosinophils # (Auto) 0.1 TH/MM3 Basophils # (Auto) 0.1 TH/MM3 CBC Comment DIFF FINAL Differential Comment Prothrombin Time 11.2 SEC Prothromb Time International Ratio 1.1 RATIO Activated Partial Thromboplast Time 26.7 SEC Blood Urea Nitrogen 15 MG/DL Creatinine 1.21 MG/DL Random Glucose 92 MG/DL Total Protein 7.9 GM/DL Albumin 4.1 GM/DL Calcium Level 9.5 MG/DL Alkaline Phosphatase 82 U/L Aspartate Amino Transf (AST/SGOT) 18 U/L Alanine Aminotransferase (ALT/SGPT) 34 U/L Total Bilirubin 0.9 MG/DL Sodium Level 139 MEQ/L Potassium Level 3.8 MEQ/L Chloride Level 104 MEQ/L Carbon Dioxide Level 25.8 MEQ/L Anion Gap 9 MEQ/L Estimat Glomerular Filtration Rate 65 ML/MIN Lipase 187 U/L Urine Color YELLOW Urine Turbidity CLEAR Urine pH 5.5 Urine Specific [place] 1.027 Urine Protein NEG mg/dL Urine Glucose (UA) NEG mg/dL Urine Ketones NEG mg/dL Urine Occult Blood NEG Urine Nitrite NEG Urine Bilirubin NEG Urine Urobilinogen LESS THAN 2.0 MG/DL Urine Leukocyte Esterase NEG Urine RBC 1 /hpf Urine WBC 1 /hpf Urine Mucus FEW /lpf Microscopic Urinalysis Comment CULT NOT INDICATED MDM Supervised Visit with MAGALI: Yes Narrative Course I, Dr. Rosa, have reviewed the advance practice practitioner's documentation and am in agreement, met with the patient face to face, made the diagnosis, and the medical decision making was done by me. *My assessment and Findings: Abdomen is soft and nontender. He has obvious pain in his low back with movement. He has tenderness in the lower left lumbar paraspinous muscles. CBC & BMP Diagram 10/05/17 15:42 Total Protein 7.9, Albumin 4.1, Calcium Level 9.5, Alkaline Phosphatase 82, Aspartate Amino Transf (AST/SGOT) 18, Alanine Aminotransferase (ALT/SGPT) 34, Total Bilirubin 0.9 UA negative Last Impressions Abdomen/Pelvis CT 10/05/17 1533 Signed Impressions: CONCLUSION: 1. No acute obstructive uropathy. 2. Uncommon located colonic diverticulosis. 3. Nondistended urinary bladder with diffuse wall thickening. 4. Degenerative changes involving the lumbar spine. Please see Mcihell Castañeda NP's note for results of laboratory and radiographic evaluation, ED course, final diagnosis and disposition Nimo Rosa MD Oct 05, 2017 16:35
== END 2017-10-05 18:48 | disposition home or self-care (01) ==
LOC: NEPD 14:16
DX: K57.30 Diverticulosis of large intestine without perforation or abscess without bleeding (principal); M51.36 Other intervertebral disc degeneration, lumbar region; Z87.442 Personal history of urinary calculi; Z88.6 Allergy status to analgesic agent; Z88.8 Allergy status to other drugs, medicaments and biological substances
CPT/HCPCS: 74176; 80053; 81001; 83690; 85025; 85610; 85730; 96360; 96361; 99284; J7030